=== PATIENT | female | born 1950 | race Caucasian/White ===

== ENCOUNTER 2017-01-09 11:10 | Emergency (ER) | payer BC ==
[~2017-01-09] VITALS: Ht 157.5 cm; Wt 80.0 kg
[~2017-01-09 11:10] MED LIST: HYDROCHLOROT25 MG PO; LEVOTHYROXIN100 MCG PO; LORTAB 5-325 MG1 TAB PO; MOTRIN800 MG PO; NORVASC2.5 MG PO; SIMVASTATIN10 MG PO
[2017-01-09 12:17] LABS: HEMATOCRIT 39.4 % (37.0-47.0); HEMOGLOBIN 13.6 g/dl (12.0-16.0); IMMATURE GRANULOCYTES 0.2 % (0.0-1.0); MEAN CELL VOLUME 91.2 fL CALC (80.0-100.0); MEAN CORPUSCULAR HGB 31.5 pG CALC (26.0-32.0); MEAN CORPUSCULAR HGB CONC 34.5 g/L CALC (32.0-36.0); NEUT# 4.73 thou/uL (2.00-7.15); RED BLOOD COUNT 4.32 mill/uL (4.20-5.60); RED CELL DISTRI WIDTH 13.2 % (11.5-15.5)
[2017-01-09 12:29] LABS: ALBUMIN 4.7 g/dL (3.2-5.0); ALKALINE PHOSPHATASE 125 u/l (38-126); ANION GAP 16 (6-22 (CALC)); BILIRUBIN, TOTAL 1.4 mg/dL (0.0-1.4); BUN 11 mg/dL (8-23); BUN/CREATININE RATIO 20 (12-20 (CALC)); CALCIUM 9.8 mg/dL (8.4-10.2); CARBON DIOXIDE 26 mmol/l (22-30); CHLORIDE 95 mmol/l (95-108); CREATININE 0.6 mg/dL (0.5-1.0); GFR > 60 ML/MIN (>=60 (CALC)); GFR FOR AFR.AMER. > 60 ML/MIN (>=60 (CALC)); GLUCOSE 130 mg/dL (82-115); POTASSIUM 3.3 mmol/l (3.5-5.1); SGOT/AST 39 u/l (9-36); SGPT/ALT 27 u/l (11-66); SODIUM 134 mmol/l (137-146)
[2017-01-09] MEDS ORDERED: ZOFRAN ODT4 MG PO (12:33)
[2017-01-09] MEDS ORDERED: ANTIVERT PO (12:33)
[2017-01-09 12:39] LABS: MYOGLOBIN 29 ng/mL (0 - 62)
[2017-01-09 13:20] VITALS: BP 148/61
== END 2017-01-09 13:23 | disposition home or self-care (01) | DRG 149 ==
LOC: ED 11:10
PROVIDERS: Emergency Medicine
DX: R42 Dizziness and giddiness (principal); I10 Essential (primary) hypertension; E03.9 Hypothyroidism, unspecified; E78.00 Pure hypercholesterolemia, unspecified

== ENCOUNTER 2018-03-19 16:46 | Inpatient (IN) | payer MEDICARE ==
[~2018-03-19] VITALS: Ht 160 cm; Wt 83.9 kg
[~2018-03-19 16:46] MED LIST changes: +ANTIVERT PO; +LIPITOR40 M1 PO; +METOPROL TAR25 MG PO; +MICRO-K10 ME1 PO; +ZOFRAN ODT4 MG PO
[2018-03-23] VITALS (7 sets, daily range): BP systolic 106–127; BP diastolic 56–66
[2018-03-23 12:25] LABS: PROTHROMBIN TIME 10.8 SECONDS (9.0-12.5)
[2018-03-24 00:15] VITALS: BP 110/65
[2018-03-24 04:36] VITALS: BP 130/67
[2018-03-24 05:40] LABS: HEMATOCRIT 39.7 % (37.0-47.0); HEMOGLOBIN 13.5 g/dl (12.0-16.0); IMMATURE GRANULOCYTES 0.4 % (0.0-1.0); MEAN CELL VOLUME 94.3 fL CALC (80.0-100.0); MEAN CORPUSCULAR HGB 32.1 pG CALC (26.0-32.0); NEUT# 8.26 thou/uL (2.00-7.15); RED BLOOD COUNT 4.21 mill/uL (4.20-5.60); RED CELL DISTRI WIDTH 13.2 % (11.5-15.5)
[2018-03-24 06:01] LABS: ANION GAP 13 (6-22 (CALC)); BUN 11 mg/dL (8-23); BUN/CREATININE RATIO 27 (12-20 (CALC)); CARBON DIOXIDE 30 mmol/l (22-30); CHLORIDE 100 mmol/l (95-108); CREATININE 0.4 mg/dL (0.5-1.0); GFR > 60 ML/MIN (>=60 (CALC)); GFR FOR AFR.AMER. > 60 ML/MIN (>=60 (CALC)); MAGNESIUM 1.3 mg/dL (1.6-2.3); POTASSIUM 3.9 mmol/l (3.5-5.1); SODIUM 139 mmol/l (137-146)
[2018-03-24 08:35] VITALS: BP 122/65
[2018-03-24] MEDS ORDERED: METO50TA52 PO (11:15)
[2018-03-24 11:39] VITALS: BP 118/52
[2018-03-24 15:18] VITALS: BP 109/65
[2018-03-24 21:14] VITALS: BP 115/66
[2018-03-25] VITALS (7 sets, daily range): BP systolic 123–158; BP diastolic 64–85
[2018-03-25 05:22] LABS: MEAN CELL VOLUME 94.5 fL CALC (80.0-100.0); MEAN CORPUSCULAR HGB 32.1 pG CALC (26.0-32.0); RED BLOOD COUNT 3.43 mill/uL (4.20-5.60); RED CELL DISTRI WIDTH 13.2 % (11.5-15.5)
[2018-03-25 05:26] LABS: HEMATOCRIT 32.2 % (37.0-47.0)
[2018-03-25 05:34] LABS: HEMATOCRIT 32.4 % (37.0-47.0)
[2018-03-25 05:38] LABS: ANION GAP 11 (6-22 (CALC)); BUN 7 mg/dL (8-23); BUN/CREATININE RATIO 15 (12-20 (CALC)); CARBON DIOXIDE 33 mmol/l (22-30); CHLORIDE 94 mmol/l (95-108); CREATININE 0.5 mg/dL (0.5-1.0); GFR > 60 ML/MIN (>=60 (CALC)); GFR FOR AFR.AMER. > 60 ML/MIN (>=60 (CALC)); POTASSIUM 3.2 mmol/l (3.5-5.1); SODIUM 135 mmol/l (137-146)
[2018-03-25 05:45] LABS: MAGNESIUM 1.8 mg/dL (1.6-2.3)
[2018-03-26 00:16] VITALS: BP 158/92
[2018-03-26 03:55] VITALS: BP 114/70
[2018-03-26 05:09] LABS: HEMATOCRIT 32.6 % (37.0-47.0); HEMOGLOBIN 10.9 g/dl (12.0-16.0)
[2018-03-26 08:17] VITALS: BP 161/70
[2018-03-26 09:07] LABS: ANION GAP 7 (6-22 (CALC)); BUN 9 mg/dL (8-23); BUN/CREATININE RATIO 20 (12-20 (CALC)); CARBON DIOXIDE 37 mmol/l (22-30); CHLORIDE 95 mmol/l (95-108); CREATININE 0.4 mg/dL (0.5-1.0); GFR > 60 ML/MIN (>=60 (CALC)); GFR FOR AFR.AMER. > 60 ML/MIN (>=60 (CALC)); MAGNESIUM 1.6 mg/dL (1.6-2.3); POTASSIUM 3.6 mmol/l (3.5-5.1); SODIUM 135 mmol/l (137-146)
[2018-03-26 09:36] LABS: HEMATOCRIT 32.8 % (37.0-47.0); HEMOGLOBIN 10.8 g/dl (12.0-16.0); MEAN CELL VOLUME 97.3 fL CALC (80.0-100.0); MEAN CORPUSCULAR HGB CONC 32.9 g/L CALC (32.0-36.0); RED BLOOD COUNT 3.37 mill/uL (4.20-5.60); RED CELL DISTRI WIDTH 13.7 % (11.5-15.5)
[2018-03-26 11:06] VITALS: BP 144/67
[2018-03-26] MEDS ORDERED: PERCOCET 10/31 COMBO PO (12:14)
[2018-03-26] MEDS ORDERED: ASPIRIN EC325 MG PO (12:14)
[2018-03-26] MEDS ORDERED: SURFAK240 MG/CAP PO (12:14)
[2018-03-26 15:05] VITALS: BP 142/74
[2018-03-26 19:15] VITALS: BP 133/75
[2018-03-27 00:16] VITALS: BP 122/73
[2018-03-27 04:35] VITALS: BP 138/90
[2018-03-27 09:14] VITALS: BP 126/71
[2018-03-27 15:39] VITALS: BP 124/58
== END 2018-03-27 16:48 | DRG 470 ==
LOC: MS2 03-23 11:16
PROVIDERS: Nurse Practitioner Family; ADMIT Orthopaedic Surgery; ATTEND Orthopaedic Surgery
PROC: 0SRD0J9 Replacement of Left Knee Joint with Synthetic Substitute, Cemented, Open Approach (ICD-10-PCS; principal; 2018-03-23)
DX: M17.12 Unilateral primary osteoarthritis, left knee (principal); I10 Essential (primary) hypertension; E78.5 Hyperlipidemia, unspecified; E03.9 Hypothyroidism, unspecified; E83.42 Hypomagnesemia; E87.6 Hypokalemia; K59.09 Other constipation; M25.512 Pain in left shoulder
CPT/HCPCS: J3475